=== PATIENT | female | born 1985 | race Caucasian/White ===

== ENCOUNTER 2025-06-15 20:08 | Emergency (ER) | payer MEDICAID ==
[~2025-06-15] VITALS: Ht 160 cm; Wt 68.0 kg
[2025-06-15 20:40] VITALS: O2SAT 100
[2025-06-15 23:20] LABS: BASOPHILS % 0.2 % (0.0-2.0); EOSINOPHILS % 0.9 % (0.0-5.0); HEMATOCRIT. 39.5 % (36.0-48.0); HEMOGLOBIN. 13.2 g/dL (12.0-16.0); LYMPHOCYTES % 19.0 % (20.0-50.0); MEAN PLATELET VOLUME 9.0 fl (7.4-10.4); MONOCYTES % 8.2 % (2.0-8.0); NEUTROPHILS % 71.7 % (40.0-76.0); PLATELET 215 x1000/uL (130-400); RED BLOOD CELL COUNT 4.51 mill/uL (4.2-5.4); RED CELL DISTRIBUTION WIDTH 13.5 % (11.6-14.6)
[2025-06-15] MEDS: KETOROLAC 15MG/ML VIAL IV ONE (23:35)
[2025-06-15 23:36] LABS: CREATININE 0.8 mg/dL (0.6-1.0)
[2025-06-15 23:37] LABS: UREA NITROGEN BLOOD 9 mg/dL (9-23)
[2025-06-15] MEDS: LABETALOL 5MG/ML 4ML INJ IV ONE (23:37)
[2025-06-15 23:38] LABS: PROTEIN TOTAL 7.7 g/dL (6.0-8.3); TROPONIN I HIGH SENSITIVITY 6 ng/L (3.0-34)
[2025-06-15 23:39] LABS: ASPARTATE AMINOTRANSFERASE 18 IU/L (<34); BILIRUBIN DIRECT 0.1 mg/dL (<=3.0); BILIRUBIN TOTAL 0.6 mg/dL (0.1-1.0)
[2025-06-15 23:42] LABS: T4 FREE 1.35 ng/dL (0.89-1.76)
[2025-06-16] MEDS ORDERED: HYDR-2988 MT (00:36)
[2025-06-16 00:41] VITALS: BP 156/79; PULSE 80; RESP 16; TEMP 37.3; O2SAT 100
== END 2025-06-16 00:46 | disposition home or self-care (01) ==
LOC: ER 20:08 → CMPBEDREQ 06-16 01:14
DX: E11.65 Type 2 diabetes mellitus with hyperglycemia (principal); I10 Essential (primary) hypertension; F19.90 Other psychoactive substance use, unspecified, uncomplicated; R51.9 Headache, unspecified
CPT/HCPCS: 99285; 96374; 70450; 71045; 96375; 80076; 80048; 81025; 82010; 83880; 84439; 83735; 84443; 85025; 84484; 36415; 93005; J1885; J3490